=== PATIENT | female | born 1970 | race Hispanic/Latino ===

== ENCOUNTER → 2017-07-22 | Outpatient (CLI) | payer BC ==
--- NOTE | 2017-07-22 16:01 | Diagnostic Imaging Report ---
PROCEDURE: Frontal and lateral views of the chest. COMPARISON: None. INDICATIONS: RIGHT SIDE CHEST PAIN FINDINGS: Lines/tubes: None. Lungs: The lungs are mildly hypoinflated with mild bibasilar subsegmental atelectasis. There is no evidence of pneumonia or pulmonary edema. Pleura: There is no pleural effusion or pneumothorax. Heart and mediastinum: The heart and the mediastinum are normal. Bones: No acute bony abnormality. IMPRESSION: 1. No acute cardiopulmonary disease. Mild bibasilar subsegmental atelectasis. Paulo Vicente M.D. Dictated by: Paulo Vicente M.D. on 07/22/2017 at 16:10 Electronically approved by: Paulo Vicente M.D. on 07/22/2017 at 16:10
== END ==
LOC: RAD 15:01
PROVIDERS: ATTEND Family Medicine
DX: R09.1 Pleurisy (principal)
CPT/HCPCS: 71046